=== PATIENT | female | born 1985 | race Caucasian/White ===

== ENCOUNTER 2017-02-16 17:45 | Inpatient (IN) | payer MEDICAID ==
[~2017-02-16] VITALS: Ht 180.3 cm; Wt 93.0 kg
--- NOTE | ~2017-02-16 | CON ---
PATIENT'S NAME: NEETA HUGHES [facility] AGE: 31 Y [address] ROOM: [address] [address] LOCATION: G3N ADMIT DATE: 02/16/2017 Consultation DISCHARGE DATE: FAMILY PHYSICIAN: Serina Domingo MD ATTENDING PHYSICIAN: ROSE MARY MORALES DATE OF CONSULTATION: 02/16/2017 REFERRING PHYSICIAN: SHAWN MALLORY MD CHIEF COMPLAINT: Status post L5-S1 laminectomy, ?? postoperative lumbar pseudomeningocele, postoperative lumbar wound infection (MRSA), ?? ongoing CSF leak. HISTORY OF PRESENT ILLNESS: The patient is a 31-year-old female patient, who underwent right L5-S1 decompressive laminectomy in [place] by Dr. Dave Nielsen in December 2016. On postoperative day 5, the patient started leaking fluid from her incision. The patient was taken back to the operating room, and incision and drainage was done by Dr. Nielsen. Intraoperative cultures grew MRSA. The patient was started on daptomycin and discharged home. She then presented again with wound swelling and leakage from the wound. She was again taken to the operating room, and incision and drainage was done again and intrawound drain was left in. The patient was continued on antibiotics. The drain was taken out by Dr. Nielsen 10 days after the 2nd I/D surgery. However, the patient continued to have swelling of the wound and leakage from it. She was told by Dr. Roe Miles that likely she has cerebrospinal fluid leakage, which will spontaneously resolve. Over the last 2 days, the patient started experiencing increasing low back pain, continuous yellowish leakage from the wound and wound swelling. She presented to the emergency in [place] and was seen by Dr. Richard. Lumbar spine MRI was done and that showed very large subfascial and subcutaneous swelling with density similar to the CSF. Post contrast study showed enhancement. I was contacted and reviewed the images. I recommended transferring the patient over for further investigations and management. I met the patient on the bay. She confirmed the history. She denied any significant pain on her lower extremities. She indicated that she continues to experience tingling on the lateral aspect of the right leg. She denied weakness on her legs. She reported ongoing headaches. She described positional headaches, which is concerning for ongoing CSF leakage in the lumbar spine. The patient denied neck pain and meningismus symptoms. She denied fever, chills. PAST MEDICAL AND SURGICAL HISTORY: Mentioned in the HPI. PATIENT'S NAME: NEETA HUGHES [facility] AGE: 31 Y [address] ROOM: [address] [address] LOCATION: [facility] ADMIT DATE: 02/16/2017 Consultation DISCHARGE DATE: FAMILY PHYSICIAN: Serina Domingo MD ATTENDING PHYSICIAN: ROSE MARY MORALES ALLERGIES: PENICILLIN. SOCIAL HISTORY: The patient is a smoker and a social alcohol drinker. She is . FAMILY HISTORY: Reviewed and noncontributory to the patient's presentation. PHYSICAL EXAMINATION: GENERAL: The patient was cooperative and pleasant. VITAL SIGNS: She was afebrile. Systolic blood pressure was less than 150. HEAD: Atraumatic. NECK: She had painless range of motion. No tenderness to palpation. RESPIRATORY: She was not in any respiratory distress. CARDIOVASCULAR: She had palpable pulses on the lower extremities. BACK: It showed a midline lumbar incision with surrounding edema. The wound was swollen. Along the upper part of the incision, I noticed crusting. The wound was fluctuant and tender to palpation. NEUROLOGIC: She was alert and oriented. Cranial nerves examination was grossly normal. Motor examination on the lower extremities showed evidence of mild right EHL weakness. Sensory examination showed decreased sensation in the right L4 dermatome. INVESTIGATIONS: Lumbar spine MRI done on February 16, 2017 without and with contrast which I personally reviewed. It showed maintained lumbar lordosis. It showed evidence of [id number]-hhzsic L5-S1 degenerative disk disease with significant bone marrow changes in L5 and S1 vertebral bodies. It also showed evidence of persistent right L5-S1 posterolateral disc bulge. It also showed evidence of postoperative changes with right L5-S1 hemilaminectomy. It showed evidence of significant subcutaneous and subfascial fluid collection with density similar to the CSF. The post contrast study showed enhancement within the wound. IMPRESSION: A 31-year-old female patient, who had right L5-S1 decompressive laminectomy by Dr. Nielsen in [place] early December 2016, after which she had 2 incision and drainage surgerieswith intrawound Hemovac placement. Her intraoperative cultures were positive for methicillin-resistant Staphylococcus aureus. It appears that the patient was told that she likely has spinal fluid leakage. She is presenting with increased leakage from the wound, increasing low back pain, and swelling. Her MRI showed evidence of large subcutaneous, subfascial fluid collection with density similar to the CSF. It also showed residual right L5- PATIENT'S NAME: NEETA HUGHES [facility] AGE: 31 Y [address] ROOM: [place] [address] LOCATION: [facility] ADMIT DATE: 02/16/2017 Consultation DISCHARGE DATE: FAMILY PHYSICIAN: Serina Domingo MD ATTENDING PHYSICIAN: ROSE MARY MORALES S1 disk herniation. It showed evidence of decompressive laminectomy in the right L5-S1 region. PLAN: 1. Urgent incision and drainage, widening of L5-S1 laminectomy and repair of durotomy and CSF leak plus/minus insertion of lumbar drain. 2. Hospitalist involvement. 3. PICC line postoperatively, Infectious Disease involvement. I discussed the imaging with the patient and her and pointed out the abnormalities seen. I clearly indicated that the patient likely has ongoing CSF leak with wound infection. I clearly indicated that the patient requires surgical intervention to drain the subcutaneous, subfascial fluid, obtain wound cultures, and widen the laminectomy to hopefully repair the durotomy and stop the CSF leak. I also indicated that she may require insertion of a lumbar drain to divert the CSF from the wound. I discussed the procedure itself, the benefits, and all the risks associated with it. I also discussed hospital stay and recovery. The patient and her family were interested in proceeding with surgery, so the patient was booked for urgent surgery. It was pleasure taking care of this patient and thanks for having us involved. MD DARYL TELLO/modl /[id number] CC: MD Morgan Johnson MD d: 02/17/17 0312 t: 02/17/17 1553, CONSULTATION REPORT
--- NOTE | ~2017-02-16 | OR ---
PATIENT'S NAME: NEETA HUGHES [facility] AGE: 31 Y [address] ROOM: [place] [address] LOCATION: G3 ADMIT DATE: 02/16/2017 OR/Procedure Report DISCHARGE DATE: FAMILY PHYSICIAN: Serina Domingo MD ATTENDING PHYSICIAN: Sarah Bronson SURGEON: Jd Jenkins MD SOLAR SALES ADVISOR: DATE OF PROCEDURE: 02/16/2017 ANESTHESIA: General. COMPLICATIONS: None. ESTIMATED BLOOD LOSS: Minimal. PREOPERATIVE DIAGNOSES: 1. Lumbar wound subfascial abscess. 2. ?? cerebrospinal fluid pseudomeningocele, ongoing cerebrospinal fluid leak. POSTOPERATIVE DIAGNOSIS: Lumbar wound subcutaneous, subfascial fluid collection/abscess. PROCEDURES PERFORMED: Incision and drainage of lumbar wound subfascial infection/abscess. CLINICAL HISTORY: The patient is an unfortunate 31-year-old female patient, who underwent right L5-S1 laminectomy by Dr. Nielsen in [place] early December, which was complicated by a wound infection that has been drained twice. She presented to [facility] with lumbar wound swelling, ongoing leak, and erythema. She had a lumbar spine MRI, and that showed large subcutaneous and subfascial fluid collection with enhancement. The patient was transferred over and was examined. Her examination was remarkable for surgical incision erythema, and swelling of the the lumbar incision. I recommended the above mentioned surgery to the patient to try to drain the collection and repair dura if CSF leak is found. I discussed the procedure itself, the benefits, and all the risks associated with it. The patient was interested in proceeding, so she was brought in for the operation. DESCRIPTION OF PROCEDURE: The patient was seen in the preoperative care unit, and the correct side was marked. Then, she was transferred to the main operating theater, was given general anesthetic, and underwent endotracheal intubation without complications. Preoperative antibiotics were not given. The patient was turned to a prone position on gel-padded Royce table, and all her joints and bony prominences were securely padded. The lumbar region PATIENT'S NAME: NEETA HUGHES [facility] AGE: 31 Y [address] ROOM: [place] [address] LOCATION: [facility] ADMIT DATE: 02/16/2017 OR/Procedure Report DISCHARGE DATE: FAMILY PHYSICIAN: Serina Domingo MD ATTENDING PHYSICIAN: Sarah Bronson was exposed. The previous midline lumbar incision was carefully examined. I noticed significant subcutaneous swelling. I also noticed erythema around the edges of the incision. The surgical site was prepped and draped as per usual. The proposed skin incision was infiltrated with 0.25% Marcaine with epinephrine. The previous skin incision was opened down to the subcutaneous tissue, and extended both cranial and caudal for better exposure. Immediately, yellowish fluid escaped under hpae-ng-dvvgenno pressure. The fluid cavity extended into the subfascial space on the right side. The opening was deepened and the spinous processes of L4, L5, and S1 were exposed. I then proceeded to expose the left L5 and S1 laminae. I then exposed the L5 laminectomy defect on the right side. I carefully examined the defect and did not see any obvious CSF leak. I also asked Anesthesia to perform a Valsalva maneuver, and that was negative for CSF leak. Just to mention, that multiple specimens from the subcutaneous, subfascial fluid collection were sent out for microbiological analysis. Immediately after that, I asked Anesthesia to administer antibiotics. The fluid collection was completely evacuated. Then, the wound was irrigated using bacitracin-containing irrigation. Then, I proceeded to close the wound. Any tissue in the wound itself was debrided. Then, the spinous processes of L5, S1, and the caudal half of L4 spinous processes were removed to better close the lumbar fascia. Then, a 1/8th Hemovac drain was inserted into the wound, tunneled, and secured to the skin with 3-0 Prolene. Then, the wound was closed in layers with #1 Vicryl to the paraspinal muscles and 2-0 Vicryl to the subcutaneous tissue. The wound edges were also debrided. Then, the skin was closed with running 3-0 Prolene. A sterile dressing was applied. At the end of the operation, the instrument and sponge counts were correct. The patient tolerated the operation without any complications. MD DARYL TELLO/anish /[id number] CC: Serina Domingo MD d: 02/17/17 0631 t: 02/18/17 1433, OPERATIVE SUMMARY
--- NOTE | ~2017-02-16 | HP ---
PATIENT'S NAME: NEETA HUGHES [facility] AGE: 31 Y [address] ROOM: [place] [address] LOCATION: [facility] ADMIT DATE: 02/16/2017 History & Physical DISCHARGE DATE: FAMILY PHYSICIAN: Serina Domingo MD ATTENDING PHYSICIAN: ROSE MARY MORALES DATE OF SERVICE: CHIEF COMPLAINT: Lumbar postsurgical site drainage and pain. HISTORY OF PRESENT ILLNESS: This is a 31-year-old female who says that she suffers from chronic lower back pain and recently had a L5-S1 laminectomy surgery by neurosurgeon, Dr. Puri in [place] in December 2016, which got infected by MRSA infection on the postsurgical site area requiring 2 additional surgery and after the surgery, the patient had a draining tube placed. This happened in December 2016. The patient was sent home with daily antibiotics that she could not remember which one. She was doing fine, however, about yesterday, the patient noticed that she had stabbing pain in the postsurgical site and the draining tube placement area, as well as leakage with yellowish clear secretion coming out from the surgical site and the draining tube area and the patient went to ER in [place], where she had an MRI of the lumbar spine without contrast, showed large abscess in the lumbar spine area in the incision area. The patient was referred here to our neurosurgeon for further care. The patient's primary neurosurgeon is currently not working. Therefore, the patient was sent over here for further care. The patient denies any fever or chills and she denies any other symptoms. REVIEW OF SYSTEMS: As mentioned in history of present illness. All other systems were reviewed and were negative except those mentioned in history of present illness. PAST MEDICAL HISTORY: 1. Bipolar disorder. 2. Depression. 3. Anxiety. 4. Asthma, well controlled. 5. 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 Puri in [place] in December 2016, complicated by MRSA infection in the wound, status post 2 additional surgeries including draining tube placement in December 2016. ALLERGIES: PENICILLIN, WHICH CAUSES RASH. PATIENT'S NAME: NEETA HUGHES [facility] AGE: 31 Y [address] ROOM: [place] [id number] LOCATION: [facility] ADMIT DATE: 02/16/2017 History & Physical DISCHARGE DATE: FAMILY PHYSICIAN: Serina Domingo MD ATTENDING PHYSICIAN: ROSE MARY MORALES MEDICATIONS: Currently has been reconciled. SOCIAL HISTORY: The patient is active cigarette smoker about 1-1/2 pack per day since she was 16 years old. She smokes marijuana on and off. She denies any intravenous illegal drugs. She denies any alcohol use. FAMILY HISTORY: Father from old age. Details are not clear. She could not remember. Mother has a stroke. PAST SURGICAL HISTORY: 1. x3. 2. Cholecystectomy. 3. Tonsillectomy. 4. Lower back surgery L5-S1 laminectomies 3 times in December 2016. PHYSICAL EXAMINATION: VITAL SIGNS: At the time of my evaluation, her temperature was 98.2, heart rate was 87, respirations were 20, blood pressure 119/74, saturation was 98% on room air. GENERAL APPEARANCE: Alert and oriented x3. Currently, in no acute distress. HEENT: Pupils are equally round and reactive to light. Extraocular muscles are intact. Anicteric sclerae. Nasal turbinates are normal bilaterally. Moist oral mucosa. NECK: No JVD. CARDIOVASCULAR: Regular rate and rhythm. Normal S1, S2. No murmur, no rubs, no gallops. RESPIRATORY: Clear to auscultation. No rales, no rhonchi, no wheezing, no crackles. ABDOMEN: Obese, nontender, nondistended. Bowel sounds are present. No mass. EXTREMITIES: No edema in upper or lower extremities. SKIN: In the lower back, the patient has a dressing cover in the lumbar midline and also on the right paraspinal area of the lumbar area with the draining tube draining serosanguineous fluids. Some tenderness in the dressing site area, but no obvious leakage of CSF or leakage of pus coming out. NEUROLOGICAL: Grossly nonfocal. LABORATORY DATA: White blood cells 9.8, hemoglobin 14.6, hematocrit 42, platelets 329, glucose 95, BUN 15, creatinine 0.6. Sodium 140, potassium 3.8, chloride 108, CO2 26, calcium 8.9, total protein 7.9, albumin 3.8. AST and ALT , alkaline PATIENT'S NAME: HUGHES, CRYSTAL K [facility] AGE: 31 Y [address] ROOM: [address] [address] LOCATION: [facility] ADMIT DATE: 02/16/2017 History & Physical DISCHARGE DATE: FAMILY PHYSICIAN: Serina Domingo MD ATTENDING PHYSICIAN: ROSE MARY MORALES phosphatase 64, total bilirubin 0.4, anion gap 9.8, INR 0.96, PTT 29. GFR more than 90. IMAGING STUDIES: MRI without contrast of the lumbar spine on admission from the outside facility in [place] on February 16, 2017, showed large abscess in the lumbar spine incision site. ASSESSMENT AND PLAN: 1. Regarding her abscess in the lumbar spine postsurgical site area: Blood culture x2 right now. The patient already went to the operating room by Dr. Jenkins and she is already status post incision and drainage of the lumbar spine abscess as well as draining tube placement in the lumbar postsurgical site. We will follow up with blood culture 2 sets right now and also follow up with the culture and Gram stain and sensitivity that was collected from the lumbar abscess area during surgery. Continue IV daptomycin, which is good coverage for the MRSA. Continue MRSA precaution. Pain control per Neurosurgery and further plan will depend on clinical course. ID consult on Thursday. We will check lactic acid and procalcitonin right now and repeat one more time in the morning. 2. Regarding her asthma: Under very good control. There is no wheezing currently, is not in flare. No inhaler needed. In fact, the patient does not even using inhaler at home given her asthma is under very good control. 3. Regarding her depression: Continue with Cymbalta, which is home medication. 4. Regarding her bipolar disorder: Continue Seroquel, which is home medication and also gabapentin and also Tegretol, which is also a home medication. 5. Regarding her anxiety: Continue with Xanax, which is home medication. 6. Regarding her benign essential tremor: Continue home medication propranolol. 7. She is a full code. 8. Deep vein thrombosis prophylaxis: Per neurosurgeon. Time spent in care on the date of admission 45 minutes, where 50 minutes was spent on chart review and the remainder of the time was spent in interview, physical examination, also on counseling. Counseling includes going over the plan of care with the patient and her family member at the bedside as well as addressing all their questions and concerns to their satisfaction. Further plan will depend on clinical course. RADHA CHAIREZ MD PATIENT'S NAME: NEETA HUGHES [facility] AGE: 31 Y [address] ROOM: [place] [address] LOCATION: [facility] ADMIT DATE: 02/16/2017 History & Physical DISCHARGE DATE: FAMILY PHYSICIAN: Serina Domingo MD ATTENDING PHYSICIAN: ROSE MARY MORALES/anish /[id number] D: T: [id number] HISTORY & PHYSICAL
--- NOTE | ~2017-02-16 | DS ---
PATIENT'S NAME: NEETA HUGHES [facility] AGE: 31 Y [address] ROOM: [address] [address] LOCATION: [facility] ADMIT DATE: 02/16/2017 Discharge Summary DISCHARGE DATE: 02/20/2017 FAMILY PHYSICIAN: Serina Domingo MD ATTENDING PHYSICIAN: Sarah Bronson FINAL DIAGNOSES: 1. Lumbar wound infection. 2. Intractable pain. 3. Tobaccoism. 4. Bipolar disorder. PRINCIPAL PROCEDURES: She had incision and drainage of her lumbar wound infection. HISTORY OF PRESENT ILLNESS: For details of admission, please see the history and physical dictated by Dr. Ferrer as well as the consultation provided by Dr. Jenkins LABORATORY DATA: On admission, sodium 140, potassium 3.8, chloride 108, CO2 of 26, BUN 15, creatinine 0.6. Liver enzymes were normal. On admission, white blood cell count 9.8, hemoglobin 14.6, hematocrit 42, platelet count 329. Wound culture grew MRSA. HOSPITAL COURSE: The patient was accepted in transfer from [place]. The provider who had done her surgery was out of town and the patient was sent to [facility] for neurosurgical evaluation. She was seen on admission and resumed on her pain medications. She did have significant pain and many adjustments were made in her medications. She was started empirically on IV antibiotics. ID was consulted. The patient was taken for I and D. The patient did have severe pain issues and we did end up having to use IV Dilaudid to supplement her oral Dilaudid. There was a consult made to the pain specialist, but unfortunately the pain specialist was not available. The patient had a previous history of an MRSA infection, so she was empirically placed on the daptomycin. On the , the decision was made that she would not receive any more IV antibiotics and we tried to simplify her pain medications as well as add a muscle relaxer. PICC line was placed because per ID, she was going to need IV antibiotics for 6 weeks. On the morning of discharge, her pain was well controlled and it was felt she was stable for discharge. DISCHARGE INSTRUCTIONS: She is to see her Dr. Jenkins on March 03 for staple removal. See Infectious Disease doctors on March 11 and her own pain specialist in 7-10 days. She is to call Dr. Jenkins's office if there were any concerns. She is supposed to keep the dressing on and dry until February PATIENT'S NAME: NEETA HUGHES [facility] AGE: 31 Y [address] ROOM: [address] [place] [id number] LOCATION: [facility] ADMIT DATE: 02/16/2017 Discharge Summary DISCHARGE DATE: 02/20/2017 FAMILY PHYSICIAN: Serina Domingo MD ATTENDING PHYSICIAN: Sarah Bronson , at which time, it could be opened. DISCHARGE MEDICATIONS: 1. Gabapentin 600 mg 3 times daily. 2. Diclofenac 50 mg daily. 3. Seroquel 200 mg at bedtime. 4. Propranolol 20 mg twice daily. 5. Carbamazepine 300 mg twice daily. 6. Cymbalta 60 mg daily. 7. Alprazolam 0.5 mg 4 times daily. 8. [place] 10/325 one every 4 hours as needed for pain. 9. Daptomycin 550 mg IV through April 09. 10. Hysingla ER 30 mg daily. 11. Colace 200 mg twice daily. 12. Skelaxin 800 mg 3 times daily. 13. Nicotine patch 21 mg daily for 6 weeks, then 14 daily patch, wear daily for 6 weeks, then 7 mg patch, wear daily for 2 weeks. 14. MiraLAX 17 g twice daily. 15. Senna 2 tablets twice daily. OVERALL PROGNOSIS: At discharge was good. DOUG TATE MD LAW/modl /[id number] CC: Jd Jenkins MD d: 02/21/17 0252 t: 03/02/17 1442, DISCHARGE SUMMARY
[2017-02-16 18:31] LABS: BASOPHIL # 0.1 K/uL (0.0-0.2); BASOPHIL % 0.5 %; EOSINOPHIL # 0.2 K/uL (0.0-0.5); EOSINOPHIL % 2.2 %; HEMOGLOBIN 14.6 g/dL (11.0-15.0); IMMATURE GRANULOCYTE % 0.2 %; LYMPHOCYTE % 30.6 %; MCH 32.7 pg (27.0-34.0); MCHC 34.8 gm/dL (32.0-36.5); MONOCYTE # 0.5 K/uL (0.0-1.0); MONOCYTE % 5.2 %; MPV 8.7 fl (9.4-12.4); NEUTROPHIL % 61.3 %; NRBC % 0 /100WBC (0-0.00); PLATELET COUNT 329 K/uL (150-450); RBC 4.47 M/uL (3.50-5.50); RDW-CV 12.6 % (11.9-14.6); WBC 9.8 K/uL (4.0-11.0)
[2017-02-16] MEDS ORDERED: NEURONTIN600 MG PO (18:35)
[2017-02-16 18:36] LABS: INR - (THERAPEUTIC) 0.96 (0.92-1.07); PROTIME 10.1 SECONDS (9.8-11.4); PTT 29 SECONDS (25-32)
[2017-02-16] MEDS ORDERED: DICLOFENAC SODI50 MG PO (18:36)
[2017-02-16] MEDS ORDERED: SEROQUEL200 MG PO (18:37)
[2017-02-16] MEDS ORDERED: INDERAL20 MG PO (18:38)
[2017-02-16] MEDS ORDERED: CARBATROL300 MG PO (18:39)
[2017-02-16] MEDS ORDERED: CYMBALTA60 MG PO (18:39)
[2017-02-16] MEDS ORDERED: XANAX0.5 MG PO (18:40)
[2017-02-16 18:44] LABS: ALBUMIN 3.8 gm/dL (3.5-5.0); ALK PHOS 64 IU/L (33-138); ALT 22 IU/L (12-78); ANION GAP 9.8 (10.0-19.0); AST 8 IU/L (10-40); BLOOD UREA NITROGEN 15 mg/dL (6-24); CALCIUM 8.9 mg/dL (8.5-10.5); CHLORIDE 108 mMol/L (96-110); CO2 26 mMol/L (22-32); CREATININE 0.6 mg/dL (0.5-1.1); POTASSIUM 3.8 mMol/L (3.7-5.1); SODIUM 140 mMol/L (135-145); TOTAL BILIRUBIN 0.4 mg/dL (0.0-1.5); TOTAL PROTEIN 7.9 g/dL (6.0-8.4)
[2017-02-16] MEDS ORDERED: NORCO 10-325 T1 EACH PO (19:43)
[2017-02-16] MEDS ORDERED: HYSINGLA ER30 MG PO (19:45)
--- NOTE | 2017-02-16 23:50 | NUR ---
Patient stated she had a lumbar lami the last part of December. Stated she has had a couple of irrigations to surgical site due to it draining purulent drainage. Drainage tested positive for MRSA. Has a large bandaid to lumbar surgical site. No drainage noted. States she has migraines. Numbness to lower right leg. Saline lock to right AC.
--- NOTE | 2017-02-17 05:23 | NUR ---
Shift Summary: Patient came back from surgery at 0030. Your last hourly post-op VS is due at 0715. She has voided multiple times. Is on her period. Refuses to use the bedpan, uses the BSC. To be flat in bed except to use the toliet or eat. She has a hemovac drain to the lumbar back. Had 5ml out. Has continued numbness to right lower leg. Had this on admit. She has history of anxiety and depression. Is on a dilaudid [employer]ER[employer] LITIGATION PARALEGAL at 0.2mg/8min. Can have PRN pain medication and use COMMERCIAL LITIGATION PARALEGAL for breakthrough pain. Is in isolation for MRSA to back.
[2017-02-17 08:24] LABS: HEMATOCRIT 37.2 % (33.0-46.0); HEMOGLOBIN 12.8 g/dL (11.0-15.0); MCH 32.3 pg (27.0-34.0); MCHC 34.4 gm/dL (32.0-36.5); MCV 93.9 fl (83.0-98.0); MPV 8.6 fl (9.4-12.4); RBC 3.96 M/uL (3.50-5.50); RDW-CV 12.5 % (11.9-14.6); WBC 10.5 K/uL (4.0-11.0)
[2017-02-17 08:51] LABS: BLOOD UREA NITROGEN 10 mg/dL (6-24); CALCIUM 8.1 mg/dL (8.5-10.5); CHLORIDE 109 mMol/L (96-110); CO2 26 mMol/L (22-32); CREATININE 0.5 mg/dL (0.5-1.1); SODIUM 139 mMol/L (135-145)
--- NOTE | 2017-02-17 13:30 | NUR ---
Significant Event: Pt Aox3. VSS, slightly hypotensive with rates in the 90's. Asymptomatic. IV intact. Will get PICC line placed on . Voids without difficulty. Dressing to back C/D/I. Drain with no drainage. Up ad justice in room. Isolation for MRSA in the back, but new cultures have not come back yet. Requested FURRIER APPRENTICE to be dc'd insteady of weaned. Giving her 10mg Oxy IR q 4 hrs and takes 10mg ER Oxy. States her pain has increased since FURRIER APPRENTICE stopped, but she doesn't want it restarted at this point. Taking PO well. Encourage activity Follow up:
--- NOTE | 2017-02-17 14:32 | NUR ---
Introduced self and care management services to patient. Lives in [place] with boyfriend. Independent at home. Too soon to know dc planning needs, getting picc line and anticipate may need IV antibx but not sure yet. [employer] will follow and assist with dc planning.
--- NOTE | 2017-02-17 18:35 | NUR ---
Pt had [place] 10 mg at 1600. She requested IV pain meds. Dr Jenkins called and he didn't want IV meds but wanted Dr Escalona to see her. He isn't available today per office nurse. Pt got very upset, anxiety, swearing, up packing her things at 1645 and said she was going to leave to go back to [facility]. Refused to sign AMA paper. Dr Santillan called and will be up shortly. Pt was missing from her room noted at [address] Santillan here to see her. House mgr, security called. Staff attempted to find patient. Was found outside in front of hospital. Dr Santillan went down to talk to her and accompanied her back up to her room at 1755. oxycodone IR 10 mg and xanax given at 1810. Pt in her room sitting on couch. New orders written by Dr Santillan.
--- NOTE | 2017-02-18 00:22 | NUR ---
Significant Event: Alert/oriented x3. Hypotensive SBP low 90s, DBP upper 40s. Dr Ferrer ordered Albumain and NS IV. Dressing to back C/D/I. Had left unit before shift change, returned after 1800, was thinking of leaving. Isolation for MRSA. Pain better, sleeping since 2200. Complained of pain with saline lock in left forearm, house mgr put midline in right upper arm. Takes PO well. Voided once per bathroom. Hemovac patent. Up ad justice in room. SO spending the night. Follow up:
--- NOTE | 2017-02-18 04:55 | NUR ---
Significant Event: On room air. Standby assist. Hemovac with 30ml out. Dilaudid IV last at 0347 and Dilaudid at 0346. Dressing had scant drainage. CSM WNL. Voids without difficulty. In isolation for MRSA. Family at bedside. Follow up:
--- NOTE | 2017-02-18 12:57 | NUR ---
Significant Event: Pt remains in contact isolation for admitting preoperative drainage and history of MRSA. Current cultures pending. VSS, received a couple boluses because yesterday her BP was 90/50s. Remains on RA and uses IS as instructed. Dressing to back has marked drainage, Dr. Jenkins removed her hemovac this am. Up ad justice in room. Pain better controlled today. Rating pain at 4. Taking IR and ER Oxycontin and PRN Dilaudid IV/PO. Takes scheduled Xanax for history of Anxiety. Voiding without difficulty, gave Colace and Prune juice/Miralax. Pleasant and cooperative with cares. Follow up:
--- NOTE | 2017-02-18 17:00 | NUR ---
Took over cares @ 1430. Pt was told she could amb in [place] with . Pt left the floor. She stated she went to the gift shop. Reinforced she is not to leave the floor. She took shower with OT. No change in back dressing. Mid line IV to L) upper arm patent. [place] given @ 1616. Had dose milk of mag. Up ad justice in room. Dr Bender to see.
--- NOTE | 2017-02-18 18:49 | NUR ---
Pt is sleeping sound. Attempted to give dulcolax. Asked night nurse, and she will try later.
--- NOTE | 2017-02-19 04:29 | NUR ---
Significant Event: A/O X 3. MIDLINE IV TO LEFT UPPER ARM INTACT. BACK DRGS INTACT WITH MARKED SCANT DRAINAGE. HAS SOME NUMBNESS RIGHT OUTER ANKLE AND LATERAL MID CALF AREA. UP TO BR, VOIDS WITHOUT DIFFICULT. HAD DULCOLAX SUPPOSITORY AT 1917 TO AID BM. HAD LARGE RESULTS AND PASSING FLATUS. IN ISOLATION FOR MRSA. SATS REMAIN ON ROOMAIR ABOVE 90%. XANAX 0.5 SCHEDULED ANXIETY. FAMILY MEMBER AT BEDSIDE. PATIENT CAN AMBULATE IN HALLS, BUT NOT TO LEAVE THE FLOOR, INSTRUCTION REINFORCED AND PATIENT UNDERSTOOD. PLEASANT AND COOPERATIVE WITH CARES. DR JAMA TO SEE. Follow up:
--- NOTE | 2017-02-19 11:52 | NUR ---
Talked with charge nurse. Pt getting PICC line placed. Anticipate will go home on IV antibx. Currently on once a day IV antibx. If once a day may be better option to go as outpt to [facility] for doses for compliance and also pt not homebound, young and active, if more than once a day IV antibx may need to use HH/Home Infusion. I contacted Rashaun Caballero RN with [facility] and she will follow if HH/HIP services are needed to help set that up, otherwise resident care associate will set up outpt IV antibx once we know what pt will go home on for sure.
--- NOTE | 2017-02-19 15:45 | NUR ---
Reviewed chart and talked with Dr Rinaldi, pt will likely go home tomorrow and get IV Daptomycin for total of 6 weeks as an outpt at [facility]. Has a PICC line now. Talked with charge nurse and got dose information and stop date and called and faxed order to [facility], phone [phone] and fax [phone], talked with charge nurse and he said to talk with case management rn Stefanie tomorrow at extension [phone]. Will have personal care aid followup tomorrow. First dose there would be Thursday if she goes home tomorrow. Talked with patient, she is agreeable to plan, asks about how to apply for disability. Told her application can be found online, or can call disability office in [place], she said she will followup on that.
--- NOTE | 2017-02-19 17:42 | NUR ---
Significant Event: Pt is a/o. Up ad justcie in room, has amb in [place]. Not allowed to leave floor. Had PICC line placed to R) upper arm. Will need new tubing for next IV ATB. Midline IV site removed. Poss discharge tomorrow with outpatient IV ATB. Pain meds were adjusted by Dr Rinaldi. Dr Bender saw patient today. Follow up:
--- NOTE | 2017-02-20 05:04 | NUR ---
Shift Summary: Patient is independent in the room. Good pain control with scheduled meds and prn [place] 10mg. Last dose at 0431. Patient has PICC line to right upper arm. Waiting on the culture sensitivities for home infusion discharge. Should go home today. Patient is a smoker, has a nicotine patch to left arm. Had to replace it at bedtime due to old patch coming off. Patient has numbness to lower right leg. Had this before her admission.
--- NOTE | 2017-02-20 09:30 | NUR ---
CHECKED CHART TO SEE IF THE DISCHARGE ORDRES HAVE BEEN COMPLETED AND NOTED THAT THEY HAVE NOT BEEN COMPLETED AT THIS TIME. WILL WAIT FOR THEM TO BE COMPLETED AND CONTACT TROY AT THE [facility]. THE PLAN IS FOR PATIENT TO GET IV DAPTO DAILY AN OUTPT AT THE [facility]. PATIENT IS ANXIOUS TO GO HOME. SHE REPORTS THAT SHE NEEDS A LETTER SIGNED BUY THE PHYSICIAN SATING THAT SHE IS HERE IS HOSPTIAL THERE" IS AWARRENT" OUT FOR HER BY JAMES. I SPOKE TO PATIENTS' SUPERVISOR REACTOR FUELING JHOANNA ([phone]) SHE CONFIRMS THAT NEETA HAS A WARRENT OUT THAT NEETA IS WORRIED ABOUT " GOING TO DETENTION" WHILE SHE IS ON THE IV DAPTO AND JOHANNA TOLD HER THAT IF SHE HAS SOMETHING FROM THE HOSPITAL THAT PROVES SHE HAS BEEN IN THE HOSPITAL THAT THIS MAY OR MAY NOT HELP. TYPED A LETTER FOR PATIENT STATING THAT SHE HAS BEEN IN THE HOSPITAL STATING THE DATES THAT SHE HAS BEEN HERE. DR. BEBETO BARAJAS SIGN THE LETTER. UPDATED PATIENT THAT THIS LETTER IS ON THE CHART FOR HER.
--- NOTE | 2017-02-20 12:30 | NUR ---
RECEIVED ORELAWANDA THAT PATIENT CAN DISHCARGE TODAY. NOTIFIED TROY AT THE [facility]. UPDATED HER THAT PATIENT IS BEING DISCHARGE HOME TODAY AND SHE WILL BE AT THE [facility] TOMORROW ([facility]) AT 10;00 AM. FAXED THE DISCHARGE ORDERS TO HER.
[2017-02-20] MEDS ORDERED: CUBICIN (NON-F500 MG IV (12:32)
[2017-02-20] MEDS ORDERED: COLACE100 MG PO (12:35)
[2017-02-20] MEDS ORDERED: SKELAXIN800 MG PO (12:37)
[2017-02-20] MEDS ORDERED: NICODERM / HABIT7 MG TRANS (12:38)
[2017-02-20] MEDS ORDERED: MIRALAX17 GM PO (12:40)
[2017-02-20] MEDS ORDERED: SENNA8.6 MG PO (12:42)
--- NOTE | 2017-02-20 12:50 | NUR ---
RECEIVED CALL FROM TROY AT THE [facility] SHE INFORMS ME THAT THEY DO NOT HAVE DAPTO 550MG TILL Thu02/24/17 AND SHE WANTS TO KNOW IF THEY CAN CHANGE THE DOES TO 500MG IV DAPTO DAILY. I NOTIFIED DR. TATE AND SHE WILL CHECK ON THIS AND GET BACK TO ME.
--- NOTE | 2017-02-20 13:40 | NUR ---
RECEIVED ORDER FOR CHANGE IN DAPT TO 500 MG IV DAILY AND TO INCREASE IV DAPTO TO 550 MG ON THURSDAY.I NOTIFIED PERLAMERT AT THE [facility] AND FAXED THE ORDERS TO HER. SHE CONTACTED BE BACK AND TELLS ME THAT SHE HAS NOT PRE AUTHED THIS WITH [employer] SHE WAS NOT AWARE THAT IT NEEDED TO BE PRECERTED. SHE IS GOING TO START THE PRECERT NOW. BUT SUGGESTS THAT THE PATIENT NOT LEAVE HER TILL SHE CALL ME. BACK TO WHETHER OR NOT THE MEDICATION GOT APPROVED WITH THE INSURANCE. I INFORMED PATIENT AND HER NURSE OF THIS AND TOLD HER THAT SHE NEEDS TO WAIT TO LEAVE I AM WAITING TO HERE BACK FROM TROY.
--- NOTE | 2017-02-20 14:25 | NUR ---
Discharge instructions reviewed with patient and her . Reviewed all medications, when to call the dr, care of dressings, activity, dvt prevention, s/s infection,PICC line - IV ATB. Care management making final arrangements for ATB and then patient will be discharged. Up ad justcie in room. Encouraged to call the dr with any questions/concerns.
--- NOTE | 2017-02-20 15:30 | NUR ---
RECEIVED CALL FROM JAYDEN JUSTICE ON 3N SHE REPORTS THAT PATIENT IS NOT WILLING TO STAY ANY LONGER AND WANTS TO LEAVE. I NOTIFIED TROY AT THE [facility] TO SEE IF SHE HAS HEARD BACK FROM [employer] AND SHE REPORTS THAT THEY ARE WILL WAITING TO ROSAS FROM INSURANCE.PATIENT INFORMED THAT [facility] IS STILL WORKING WITH HER INSURANCE TO GET THE DAPTO PRECERTED AND PATIENT IS STILL NOT WILLING TO STAY UNTIL WE HERE FROM INSURANCE.
== END 2017-02-20 15:35 | disposition disaster alternative care site (69) | DRG 857 ==
LOC: G3N 17:52
PROVIDERS: Internal Medicine; ADMIT Internal Medicine
PROC: 0J970ZZ Drainage of Back Subcutaneous Tissue and Fascia, Open Approach (ICD-10-PCS; principal; 2017-02-16)
PROC: 02HV33Z Insertion of Infusion Device into Superior Vena Cava, Percutaneous Approach (ICD-10-PCS; 2017-02-19)
DX: T81.4XXA Infection following a procedure, initial encounter (principal); L02.212 Cutaneous abscess of back [any part, except buttock and flank]; I95.9 Hypotension, unspecified; B95.62 Methicillin resistant Staphylococcus aureus infection as the cause of diseases classified elsewhere; G89.18 Other acute postprocedural pain; F31.9 Bipolar disorder, unspecified; J45.909 Unspecified asthma, uncomplicated; F41.9 Anxiety disorder, unspecified; G25.0 Essential tremor; Z88.0 Allergy status to penicillin; F17.210 Nicotine dependence, cigarettes, uncomplicated; G47.00 Insomnia, unspecified; K59.03 Drug induced constipation; T40.605A Adverse effect of unspecified narcotics, initial encounter
CPT/HCPCS: C1751; J0878; J1100; J1170; J2001; J2250; J2270; J2405; J3010; J3370; J7030; J7040; J7050; P9047